=== PATIENT | male | born 1955 | race Caucasian/White ===

== ENCOUNTER 2025-09-05 08:54 | Day surgery (SDC) | payer OTHER, SELFPAY ==
--- NOTE | 2025-09-04 13:54 | H&P.OPEN ---
HPI - General General Date of Service: 09/05/25 HPI Narrative SHERRI KEYS, is a 69 M who presents for colonoscopy due to history of colon polyps. Patient denies any changes since office visit. Office visit 07/24/2025 [facility] HPI: 69-year-old male presents for colonoscopy due to history of colon polyps. Patient's last colonoscopy was 2019 had a tubular adenoma at that time. Patient denies any family history of colon cancer. Patient denies any abdominal pain/nausea/vomiting/reflux. Patient has bowel movements every other day denies any blood. Patient did receive moviprep in the mail from the [facility] Medical History Wears glasses High cholesterol Former smoker History of stress test Hx of colonic polyps HTN (hypertension) Arthritis GERD (gastroesophageal reflux disease) Asthma Home Medications ?Medication ?Instructions ?Recorded ?Last Taken ?Type amlodipine 10 mg tablet 10 mg PO QDAY 07/24/25 09/04/25 History aspirin 81 mg tablet 81 mg PO QDAY 07/24/25 08/26/25 History atorvastatin 40 mg tablet (Lipitor) 40 mg PO QDAY 07/24/25 09/04/25 History hydrochlorothiazide 12.5 mg capsule 12.5 mg PO QAM 07/24/25 09/04/25 History losartan 100 mg tablet 100 mg PO QDAY 07/24/25 09/04/25 History Allergy/AdvReac Type Severity Reaction Status Date / Time ibuprofen Allergy Intermediate Other Verified 09/05/25 09:13 Family History Mother Breast cancer Surgical History History of appendectomy History of release of tendon H/O bilateral hip replacements Social History Smoking Status: Former smoker Past Medical/Surgical History Planned Operation Planned Operative Procedure(s): cscope Previous Hospitalizations/Surgeries HX Hospitalizations: No Any Problems With Anesthesia: No You/Your Family Experience Fever (Hyperthermia) With Anes: No Cholinesterase deficiency: No Cardiovascular Hx Chest Pain within Last 2 months: No Hx Heart Attack: No Hx Hypertension: Yes (CONTROLLED WITH MED) Hx Cardiac Surgery/Stents/Etc.: No Respiratory Hx Chronic Obstructive Pulmonary Disease (COPD): Yes Hx Sleep Apnea: No Hx Respiratory Tract Infection/Cold (presently): No Do You Snore Loudly (louder than talking or can be heard): No Do You Often Feel Tired/ Fatigued/ Sleepy Dring Daytime?: No Has Anyone Observed You Stop Breathing During Sleep?: No Result (for STOP score): Negative Hx Smoking: No Smoking Status: Former smoker Neurological Hx Seizures: No Hx Multiple Sclerosis: No Does patient have nerve stimulator: No Blood Disorder Hx Anemia: No Reproduction : No Genitourinary Hx Dialysis: No Musculoskeletal Hx Arthritis: Yes Hx Rheumatoid Arthritis: No Endocrine Hx Diabetes: No Thyroid Disease: No Psycho/Social Hx Depression: No Miscellaneous Hx Cancer: No Allergies ibuprofen Allergy (Intermediate, Verified 09/05/25 09:13) Other Discharge Is Pt Admitted From a Custodial, or a Mcfp: No After D/C, Where Do you Plan to Go: Return Home From the PAT History Number of Risk Factors: 2 Physical Exam Const alert, oriented x3 and no apparent distress HEENT normocephalic and head/scalp atraumatic Resp normal respiratory effort Cardio regular rate GI soft to palpation and non-tender; Negative for non-distended Palpation: Negative for guarding Extremity no clubbing, cyanosis or edema Skin no rashes or lesions noted Neuro CN's II-XII intact bilaterally Psych mental status grossly normal Assessment & Plan Assessment/Plan (1) Hx of colonic polyps: Surgery Risks - Colonoscopy I discussed with the patient the risks of the procedure: Yes Risks Include but are not Limited To: Risks include but are not limited to: Bleeding, perforation requiring further surgery, inability to complete colonoscopy requiring barium enema.
[2025-09-05] VITALS (7 sets, daily range): BP systolic 122–148; BP diastolic 78–89; PULSE 57–77; RESP 16; TEMP 36.4–37.2; O2SAT 95; BMI 40.4
[2025-09-05] MEDS: Lactated Ringers 1,000 ML 15 ML IV (09:23)
--- NOTE | 2025-09-05 09:37 | PRE.ANES_ITS ---
ASA Classification* ASA Classification ASA Classification: 3 Assessment & Plan Anesthesia* Anesthesia Assessment Anesthesia Assessment: Discussed sedation and/or anesthesia options, risks, benefits, and alternatives with patient/parents/legal guardian/POA. Questions invited. The patient/parents/legal guardian/POA seems to understand and agrees to proceed with anesthesia plan. Reviewed the physical assessment, medical history, allergy history and patient home medications list prior to surgery/procedure/anesthetic and documented any changes. Performed airway and anesthesia risk assessments. 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 When Was Last Pacemaker Check QUESTION #4 FULL TEXT: You/Your Family Experience fever (hyperthermia) with Anesthesia Last Oral Intake Last Oral intake: Last Oral Intake NPO since 05:00 09/05/25 09:16 Meds taken in AM with sips of No 09/05/25 09:16 water? Meds patient instructed to take am of surgery PONV PONV - shell sieve operator: PONV - shell sieve operator Female No 09/03/25 13:08 HX of Motion Sickness No 09/03/25 13:08 HX of N/V After Surgery No 09/03/25 13:08 Non-Smoker Yes 09/03/25 13:08 Duration of Surgery greater No 09/03/25 13:08 than 60 minutes Number of Risk Factors 1 09/03/25 13:08 PONV Score Low Risk 09/03/25 13:08 Height & Weight Height & Weight: Anesthesia: Height & Weight Height 5 ft 10 in 09/05/25 09:16 Weight: 128 kg 09/05/25 09:16 Body Mass Index (BMI) 40.4 09/05/25 09:16 Respiratory Assessment Respiratory Assessment - shell sieve operator: Respiratory Tract Infection Hx - shell sieve operator Hx Respiratory Tract Infection No 09/04/25 13:55 STOP Sleep Apnea STOP Sleep Apnea - shell sieve operator: STOP Sleep Apnea - shell sieve operator Hx Hypertension Yes: CONTROLLED WITH MED 09/04/25 13:55 Hx Sleep Apnea No 09/04/25 13:55 CPAP BIPAP Do you snore loudly (louder No 09/04/25 13:55 than talking or can be heard Do you often feel tired/ No 09/04/25 13:55 fatigued/ sleepy during daytime? Has anyone observed you stop No 09/04/25 13:55 breathing during sleep? STOP Results Negative 09/04/25 13:55 QUESTION #5 FULL TEXT : Do you snore loudly (louder than talking or can be heard through closed doors)? 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 Specify any problems Hx of Preganancy in last 3 N/A 09/03/25 13:08 Months Nurse Filling Out Transfusion NBUCHER 09/03/25 13:08 & Questions: Date: 09/03/25 09/03/25 13:08 Time: 13:11 09/03/25 13:08 Patient unable to answer at this time (ie. confused, unrespo /Reproduction History /Reproductive History - shell sieve operator: /Reproductive Hx- shell sieve operator Hx Now No 09/04/25 13:55 Gestational Age (in weeks): EDC: Hx Hx Para Hx Section SAB No 09/03/25 13:08 Does the father of the baby or his family experience fever w Father of the baby Malignant Hypertension history comment Active Medications Active Medications: Current Medications Generic Name Dose Route Start Last Admin Trade Name Freq PRN Reason Stop Dose Admin Lactated Ringer's 1,000 mls @ 15 mls/hr 09/05/25 09:15 09/05/25 09:23 IV 15 mls/hr .Q48H ATIYA Administration PFSH Medical History Wears glasses High cholesterol Former smoker History of stress test Hx of colonic polyps HTN (hypertension) Arthritis GERD (gastroesophageal reflux disease) Asthma Home Medications ?Medication ?Instructions ?Recorded ?Last Taken ?Type amlodipine 10 mg tablet 10 mg PO QDAY 07/24/2509/04 History aspirin 81 mg tablet 81 mg PO QDAY 07/24/2508/26 History atorvastatin 40 mg tablet (Lipitor) 40 mg PO QDAY 06/2809/04/25 History hydrochlorothiazide 12.5 mg capsule 12.5 mg PO QAM 09/04/25 History losartan 100 mg tablet 100 mg PO QDAY 07/24/2506/21 History Allergy/AdvReac Type Severity Reaction Status Date / Time ibuprofen Allergy Intermediate Other Verified 09/05/25 09:13 Family History Mother Breast cancer Surgical History History of appendectomy History of release of tendon H/O bilateral hip replacements Social History Smoking Status: Former smoker Review of Systems (Anesthesia) ROS Narrative System reviewed and no additional complaints, except as documented. Physical Exam Const alert and oriented x3 Nutritional Appearance: morbidly obese HEENT dentition normal Neck General: normal visual inspection and trachea midline Resp normal respiratory effort and normal air movement Auscultation: clear to auscultation bilaterally Cardio regular rate and regular rhythm Back/Spine normal ROM Neuro oriented x3 and moves all extremities
--- NOTE | 2025-09-05 11:00 | COLBX_PTH ---
PATIENT: SHERRI KEYS LOC: EN U#:[id number] AGE/SX: 69/M ROOM: RE09/05/[address]: Dr. Ashanti Edmonds MD : 1955 BED: DIS: 09/05/2025 SPEC #: [id number] RECD: 09/05/25 13:50 STATUS: DA REQ #: [id number] SUZAN: 09/05/25 11:[address]: Ashanti Edmonds DEPT: SURGICAL PATHOLOGY RECD BY: Alexis Pelaez ENTERED: 09/05/25 14:13 SP TYPE: COLON BX OT DR: [facility] Tissues: A - Descending colon Procedures: Surgery Specimen Level IV HEADER OPERATION: Colonoscopy with polypectomy PRE-OP DIAGNOSIS: History of colonic polyps TISSUE SUBMITTED: A- Descending polyps x2 MICROSCOPIC DIAGNOSIS A. Colon, descending, polyp x2, polypectomy: - Tubular adenoma. - Hyperplastic polyp. MICROSCOPIC DESCRIPTION Slides are reviewed. GROSS DESCRIPTION A. Received in fixative is one container labeled with the patient's name and designated Descending polyps x2. The specimen consists of multiple irregular fragments of mark tissue that in aggregate measure 1.5 x 0.7 x 0.2 cm, admixed with flocculent material. The specimen is totally submitted in one cassette. MD 09/05/2025 CPT:63614
--- NOTE | 2025-09-05 12:06 | OP.COLON_ITS ---
Patient Name: Zeb Donato Procedure Date: 09/05/2025 11:25 AM Date of : 1955 Age: 69 Procedure: Colonoscopy Indications: High risk colon cancer surveillance: Personal history of colonic polyps Providers: Ashanti Edmonds MD Medicines: Monitored Anesthesia Care Patient Profile: This is a 69 year old male. Last Colonoscopy: 2019. Complications: No immediate complications. Procedure: Pre-Anesthesia Assessment: - Prior to the procedure, a History and Physical was performed, and patient medications and allergies were reviewed. The patient's tolerance of previous anesthesia was also reviewed. The risks and benefits of the procedure and the sedation options and risks were discussed with the patient. All questions were answered, and informed consent was obtained. Prior Anticoagulants: The patient has taken no anticoagulant or antiplatelet agents except for aspirin. ASA Grade Assessment: Per anesthesia. After reviewing the risks and benefits, the patient was deemed in satisfactory condition to undergo the procedure. After I obtained informed consent, the scope was passed under direct vision. Throughout the procedure, the patient's blood pressure, pulse, and oxygen saturations were monitored continuously. The Colonoscope was introduced through the anus and advanced to the cecum, identified by the appendiceal orifice, ileocecal valve and palpation. The colonoscopy was performed without difficulty. The patient tolerated the procedure well. The quality of the bowel preparation was good except the sigmoid colon was fair due to corn. Scope In: 11:35:50 AM Scope Withdrawal Time 0 hours 20 minutes 48 seconds Scope Out: 11:59:42 AM Total Procedure Duration Time 0 hours 23 minutes 52 seconds Findings: The perianal and digital rectal examinations were normal. Two sessile polyps were found in the descending colon. The polyps were 4 to 7 mm in size. These polyps were removed with a cold biopsy forceps. Resection and retrieval were complete. The entire examined colon appeared normal on direct and retroflexion views. Impression: - Two 4 to 7 mm polyps in the descending colon, removed with a cold biopsy forceps. Resected and retrieved. - The entire examined colon is normal on direct and retroflexion views. Recommendation: - Discharge patient to home. - Resume previous diet. - Continue present medications. - Await pathology results. - Repeat colonoscopy in 3 years for surveillance based on pathology results. Procedure Code(s): --- Professional --- 68959, PT, Colonoscopy, flexible; with biopsy, single or multiple Diagnosis Code(s): --- Professional --- Z86.010, Personal history of colonic polyps D12.4, Benign neoplasm of descending colon CPT copyright 2021 [employer]. All rights reserved. The codes documented in this report are preliminary and upon medical biller/coder review may be revised to meet current compliance requirements. MD Ashanti Montenegro MD 09/05/2025 12:06:19 PM This report has been signed electronically. Number of Addenda: 0 Note Initiated On: 09/05/2025 11:25 AM
--- NOTE | 2025-09-05 12:07 | OP.PROVAT_ITS ---
09/05/2025 [facility] Re : Colonoscopy procedure for [facility] This procedure was performed on Friday, September 05, 2025. My impressions and recommendations are as follows: Impressions : - Two 4 to 7 mm polyps in the descending colon, removed with a cold biopsy forceps. Resected and retrieved. - The entire examined colon is normal on direct and retroflexion views. Recommendations : - Discharge patient to home. - Resume previous diet. - Continue present medications. - Await pathology results. - Repeat colonoscopy in 3 years for surveillance based on pathology results. My findings are described in the full procedure note, which is enclosed. If I can be of further assistance, please feel free to contact me at Doctor phone number(s): , Work: . Sincerely, MD Ashanti Montenegro MD 09/05/2025 12:06:19 PM This report has been signed electronically.
--- NOTE | 2025-09-05 12:15 | PCM.POST.ANE ---
Anesthesia: Postop Eval I Current Vital Signs Temperature: 98.9 F Pulse Rate: 61 Blood Pressure: 122/81 Respiratory Rate: 16 Pulse Ox: 95 Oxygen Delivery Method: Room Air Assessment Airway patent: Yes Spontaneous unlabored respirations: Yes Mental status: Awake and Calm nausea: No Vomiting: No Anesthesia Complication: No Fluid Hydration Crystalloid volume administer (ml): 600 Total IV fluid infused: 600 Progress Note Anesthesia document: Postop Eval 1 completed: Yes
--- NOTE | 2025-09-05 14:27 | PCM.POSTANE2 ---
Anesthesia Postop Eval I Sum Postop Eval Completion status Anesthesia document: Postop Eval 1 completed: Yes Anesthesia Postop Eval I Summary Anesthesia Postop Eval I Summary: Anesthesia Postop Eval I: Assessment Summary Airway patent Yes 09/05/25 12:20 [email or web address] Spontaneous unlabored Yes 09/05/25 12:20 [email or web address] respirations Mental status Awake,Calm 09/05/25 12:20 [email or web address] nausea No 09/05/25 12:20 [email or web address] Vomiting No 09/05/25 12:20 [email or web address] Anesthesia Postop Eval I: Fluid Summary Crystalloid volume administer 600 09/05/25 12:20 [email or web address] (ml) Colloids volume administered ( ml) Blood Product volume administered (ml) Total IV fluid infused 600 09/05/25 12:20 [email or web address] Anesthesia Postop Eval I: Summary Notes Anesthesia Complication No 09/05/25 12:20 [email or web address] Anesthesia Complication Comment: Post-operative progress note Anesthesia: Postop Eval II Evaluation Mental status: Awake and Calm Pain Level: 0 nausea: No Vomiting: No Complications Anesthesia Complication: No
== END 2025-09-05 12:40 | disposition home or self-care (01) ==
LOC: EN 09:02 → AC 09:02
PROVIDERS: Visit Provider Surgery
PROC: 0DJD8ZZ Inspection of Lower Intestinal Tract, Via Natural or Artificial Opening Endoscopic (ICD-10-PCS; CPT 45378; principal; 2025-09-05 10:55)
DX: D12.4 Benign neoplasm of descending colon (principal); J44.9 Chronic obstructive pulmonary disease, unspecified; Z86.0100 Personal history of colon polyps, unspecified; I10 Essential (primary) hypertension; Z87.891 Personal history of nicotine dependence; E78.00 Pure hypercholesterolemia, unspecified; K21.9 Gastro-esophageal reflux disease without esophagitis; Z79.899 Other long term (current) drug therapy
CPT/HCPCS: 45380; 88305; J2405